=== PATIENT | female | born 1965 | race Hispanic/Latino ===

== ENCOUNTER 2018-08-31 07:50 | Day surgery (SDC) | payer OTHER, SELFPAY ==
[2018-08-31] VITALS (7 sets, daily range): BP systolic 90–115; BP diastolic 56–77; PULSE 75–92; RESP 12–18; TEMP 36.2–36.8; O2SAT 97–100; BMI 18.3
--- NOTE | 2018-08-31 | PATH_ITS ---
[facility] Accession Number: [id number] . 01 Material submitted: . PART A: ileo-cecal valve - IC VALVE PART B: colon - ASCENDING COLON POLYP PART C: colon - COLON POLYP AT 10-16CM . 02 Diagnosis: A. Ileocecal Valve, Polyp: Small serrated lesion, cannot exclude early sessile serrated adenoma. . B. Ascending Colon, Polyp: Sessile serrated adenoma. . C. Colon Mass, at 10-16 cm, Biopsies: Tubulovillous adenoma with high-grade dysplasia, focally suspicious for invasive adenocarcinoma; please see comment. MRV/09/02/2018 . 02 Comment: Part C) Sections are of colonic mucosa with cytologic dysplasia evidenced by nuclear hyperchromasia, pseudostratification and increased mitotic activity. Focally, the architecture reaches threshold for high-grade dysplasia. Adjacent to this focus, putative desmoplasia is present, highly concerning for invasive adenocarcinoma given the endoscopic impression of a mass. Assurance of complete removal of the lesion and close clinical followup are recommended. Given that there is no definitive adenocarcinoma in this specimen, immunohistochemical stains for DNA mismatch repair proteins are deferred to a resection specimen. However, if clinically indicated, these studies can be performed on this specimen upon request. . As part of routine research quality assurance specialist, Dr. Garsia has reviewed part C of this case and agrees with high-grade dysplasia, suspicous for invasive adenocarcinoma. The findings in this case were reported to Dr. Kang via his medical insurance claims processor Cindy by Dr. Keenan Morrow on 09/02/2018 at 2:10 p.m. . 02 Electronically signed: . Keenan Morrow MD, PhD, Pathologist NPI- [id number] . 01 Gross description: . Part A: IC VALVE: Received in formalin is 1 fragment(s) of henry, soft tissue measuring 0.3 x 0.3 x 0.3 cm which is entirely submitted and submitted entirely in 1 cassette(s) Part B: ASCENDING COLON POLYP: Received in formalin is 1 fragment(s) of henry, soft tissue measuring 0.8 x 0.5 x 0.4 cm which is entirely submitted and submitted entirely in 1 cassette(s) Part C: COLON POLYP AT 10-16CM: Received in formalin are multiple fragment(s) of henry, soft tissue measuring 0.1 x 0.1 x 0.1 cm to 0.3 x 0.3 x 0.2 cm which is entirely submitted and submitted entirely in 1 cassette(s) /DMC /DMC . 02 Pathologist provided ICD-10: D12.0, D12.2, D12.6 . 02 CPT . 405884, 130500, 524796 Performed at: 01 [facility] [address] [place] [address], [place], [place] [id number] MD Jack Crowell MD Phone: [phone] Performed at: 02 [facility] [address] [place], [place] [id number] MD Juanita Ricci MD Phone: [phone]
[2018-08-31] MEDS: SODIUM CHLORIDE 0.9% 1,000 ML 42 ML IV (08:27)
[2018-08-31] MEDS: MIDAZOLAM 5 MG/5 ML VIAL IV (09:25)
[2018-08-31] MEDS: fentaNYL 250 MCG/5 ML INJ IV (09:26)
--- NOTE | 2018-08-31 09:56 | PM.OP.ENDO ---
Operative Date/Time/Diagnoses Date of procedure: 08/31/18 Time of procedure: 09:56 Pre-op diagnosis: See indications and findings Procedure & Clinicians Study performed: Colonoscopy Indications: History of colon polyps with last colonoscopy 3 years ago. Patient also has been having rectal bleeding with most all bowel movements over the last year Surgeon: Elana Kang Procedure Notes Procedure in detail: After informed consent was obtained the patient was placed in left lateral decubitus position. The video colonoscope was introduced the rectum slowly advanced to the cecum. On slow withdrawal mucosa was carefully examined. Preparation was good. The scope was removed. The patient tolerated procedure well Blood loss none Complications none Medications Versed 8 mg fentanyl 150 micro g IV titration Total sedation time 26 minutes Findings 1. 5 mm polyp on the IC valve Jumbo biopsy removed completely 2. Indistinct flat polyp in the ascending colon probably 12 mm in size snared and removed completely with small amount of cautery 3. Colon mass at the apex of the rectum. distal measurement approximately 10 cm proximal 16 cm. Horseshoe shape and firm. Multiple biopsies taken. This was able to be palpated the tip of the finger on deep rectal exam. We will wait biopsies but almost certainly this lesion is malignant. She will need to be referred to Oncology for neoadjuvant chemotherapy and radiation therapy before surgery is considered. Will does be discussed the case with her primary care. She will need follow-up colonoscopy in 1 year or less
--- NOTE | 2018-08-31 10:37 | PM.HP.1 ---
History of Present Illness Chief complaint: [id number] COLONOSCOPY W/POSS BX Patient History Medical History (Updated 08/31/18 @ 08:09 by Reena Powers RN) Anemia (Acute) Dizziness (Acute) History of hysterectomy (Acute) Low vitamin D level (Acute) Migraines (Acute) Ovarian cyst (Acute) Palpitations (Acute) Thyroid tumor, benign (Acute) Social History household members: spouse Family & Social History Social History: household members spouse Meds Home Medications Medication Instructions Recorded Confirmed Type cholecalciferol (vitamin D3) 5,000 unit PO DAILY 08/31/18 08/31/18 History [Vitamin D3] ferrous sulfate [iron] 325 mg PO DAILY 08/31/18 08/31/18 History Allergies Allergy/AdvReac Type Severity Reaction Status Date / Time aspirin [ASPIRIN] Allergy Intermediate BLOOD Verified 08/31/18 08:04 BLISTERS NSAIDS (Non-Steroidal Allergy Intermediate BLOOD Verified 08/31/18 08:04 Anti-Inflamma BLISTERS [NSAIDS (NON-STEROIDAL ANTI-INFLAMMA] lactose [LACTOSE] Allergy Mild DIARRHEA, Verified 08/31/18 08:04 STOMACH CRAMPING. turkey Allergy Intermediate Causes Uncoded 08/18/17 12:10 migraines Exam Vital Signs (past 8 hours): - 08/31/18 08:16 08/31/18 09:51 08/31/18 09:56 Temperature 97.3 F L 97.2 F L Pulse Rate 86 77 75 Respiratory Rate 15 12 12 Blood Pressure 115/74 98/64 94/56 L Pulse Oximetry 97 98 97 08/31/18 10:00 08/31/18 10:05 08/31/18 10:15 Temperature 98.2 F Pulse Rate 79 78 92 H Respiratory Rate 16 18 16 Blood Pressure 90/57 L 101/70 112/76 Pulse Oximetry 99 98 100 Oxygen Delivery Method Room Air Narrative Exam Narrative: Oropharynx free of lesions Chest clear to auscultation percussion Cardiac exam reveals no S3 or murmur Assessment & Plan Assessment & Plan narrative: History of colon polyps with last colonoscopy 3 years ago. In addition she has been having rectal bleeding with most stools for the last year. Rule out recurrent polyps versus neoplasia. Rule out perianal source of bleeding. Colonoscopy has been explained. Risks, benefits, alternatives have been explained.
== END 2018-08-31 11:20 | disposition home or self-care (01) ==
PROVIDERS: PCP Nurse Practitioner Family; Visit Provider Internal Medicine Gastroenterology
PROC: 0DJD8ZZ Inspection of Lower Intestinal Tract, Via Natural or Artificial Opening Endoscopic (ICD-10-PCS; CPT 45378; principal; 2018-08-31 09:00)
DX: K62.5 Hemorrhage of anus and rectum (principal); Z86.010 Personal history of colon polyps; D12.0 Benign neoplasm of cecum; D12.2 Benign neoplasm of ascending colon; D12.6 Benign neoplasm of colon, unspecified
CPT/HCPCS: 45385; 45380; 88305; J2250; J3010

== ENCOUNTER → 2018-09-16 08:02 | Outpatient (CLI) | payer OTHER, SELFPAY ==
--- NOTE | 2018-09-16 | DI.MRI.S_ITS ---
PROCEDURE: MR PELIS WO/W CON INDICATIONS: Disease of anus and rectum, unspecified TECHNIQUE: Coronal HASTE, sagittal T2 FSE, axial T1 FSE, axial and coronal nonbreath-hold T2 FSE. Axial dynamic VIBE during administration of contrast. Post-contrast axial and coronal VIBE/2-D FLASH with fat saturation from the iliac crests to the symphysis. Optional diffusion weighted imaging and ADC may be performed. COMPARISON: None. FINDINGS: Image quality: Excellent. Rectum: Morphology: Semicircumferential lesion involving the mid to proximal segment of the rectum, about 270? of the rectal lumen. Clock face of tumor involvement: Approximately 10:00 to 7:00. Mucinous (high T2 signal): Heterogeneous mildly increased T2 signal diffusely with scattered areas of higher signal (likely areas of mucinous involvement). Craniocaudal length: Approximately 7 cm Distance to anal verge: Approximately 7 cm Distance to top of sphincter complex/anorectal junction: About 3.5 cm Relationship to anterior peritoneal reflection: straddles Tumor at or below puborectalis sling: No T staging: Depth of extramural invasion: 7 mm. Small spiculation of tumor extension left lateral from the 3:00 position (series 7 image 31). Extramural vascular invasion: Possible given the close association of perirectal neovascularity. T3 tumors only: distance to mesorectal fascia (circumferential resection margin): Posterior margin of the tumor/posterior serosal surface is within 4 mm of the sacrum. Pelvic organ involvement: Genitourinary: None. The uterus is surgically absent. Pelvic sidewall (obturator internus, piriformis, ischiococcygeus muscles): None Pelvic floor (pubococcygeus, iliococcygeus, puborectalis, levator plate): None Sacrum: None Vessels (internal and external iliac arteries and veins): None Nerves (lumbosacral nerve roots): None Regional lymph nodes (mesorectal, inguinal, iliac): Multiple abnormal perirectal lymph nodes are present with the average size of 7 mm in short axis. The most proximal perirectal lymph node with suspicious features measures 6 mm in short axis and is at the level of S3 to the left of midline. Other bowel and peritoneum: No pathologic free pelvic fluid. More proximal colon and small bowel loops are normal in caliber. Bones: Marrow is normal in overall signal. IMPRESSION: 1. 7 cm long T2 lesion with probable extramural extension of tumor or depth of about 7 mm. Questionable stage TIII C. 2. Multiple abnormal lymph nodes in the perirectal fat extending proximal to the level of S3. 3. Posterior margin of the rectal tumor is within 4 mm of the sacrum. Dictated by: Seema Reyes M.D. on 09/16/2018 at 11:20 Approved by: Seema Reyes M.D. on 09/16/2018 at 11:54
--- NOTE | 2018-09-16 09:28 | DI.CT.S_ITS ---
PROCEDURE: CT CHEST ABD PEL W CON INDICATIONS: Disease of anus and rectum, unspecified TECHNIQUE: After the administration of oral and intravenous contrast, 5 mm thick sections acquired from the lung apices to the symphysis. 5 mm coronal and sagittal reformats were performed, with additional 7 mm coronal MIP reformats through the lungs. For radiation dose reduction, the following was used: automated exposure control, adjustment of mA and/or kV according to patient size. COMPARISON: None. FINDINGS: Image quality: Excellent. CHEST: Lungs and pleura: No acute consolidation. Tiny 1 mm nonspecific right upper lobe nodule on image 22 series 3. No pleural effusions or pneumothorax. Central and peripheral airways appear patent and normal in caliber. Mediastinum: Heart size is normal. No pericardial effusion. No mediastinal or hilar adenopathy by size criteria. Thoracic aorta and central pulmonary arteries are normal in size. Esophagus is normal in caliber. No hiatal hernia. Chest wall: No axillary or supraclavicular adenopathy by size criteria. Thyroid gland demonstrates a large heterogeneous nodule involving the right lobe which could be better assessed with dedicated ultrasound.. ABDOMEN: Solid organs: Hepatic steatosis without definite focal lesion. Gallbladder unremarkable. Biliary system is non dilated. Pancreas enhances normally. Spleen is normal in size and enhancement. No adrenal nodules. Kidneys demonstrate normal size and enhancement, without hydronephrosis. Peritoneum and bowel: No free fluid or free air. No evidence of bowel obstruction. Moderate stool throughout colon. Colonic diverticulosis is seen without evidence of acute complication. Large rectal mass is seen image 102 series 2, with extensive wall thickening. This measures approximately 1.8 x 2.7 cm on image 98. There are sub-5 mm prominent lymph nodes in the mesorectal fat, suspicious for metastatic involvement. Nodes and vessels: No retroperitoneal or mesenteric adenopathy by size criteria. Aorta and inferior vena cava are normal in size. Miscellaneous: No ventral hernias. PELVIS: Genitourinary: Bladder wall thickness is normal. Miscellaneous: No inguinal hernias or adenopathy. Bones: No suspicious bony lesions. No vertebral body compression fractures. IMPRESSION: Large rectal mass. Scattered sub-5 mm prominent lymph nodes in the mesorectal fat are suspicious for metastatic disease. 1 mm nonspecific right upper lobe pulmonary nodule for which attention is recommended on subsequent studies. Elsewhere, no evidence of distant metastatic disease. Hepatic steatosis. Heterogeneous right thyroid lesion. This is the lesion presumably sampled on ultrasound guided FNA of 10/14/15. Please see report Dictated by: Juan Denton M.D. on 09/16/2018 at 10:30 Approved by: Juan Denton M.D. on 09/16/2018 at 10:40
== END ==
PROVIDERS: PCP Nurse Practitioner Family; Visit Provider Radiology Radiation Oncology
DX: D49.0 Neoplasm of unspecified behavior of digestive system (principal); R91.1 Solitary pulmonary nodule; R59.0 Localized enlarged lymph nodes; K76.0 Fatty (change of) liver, not elsewhere classified; E07.9 Disorder of thyroid, unspecified
CPT/HCPCS: 71260; 72197; 74177; A9579; Q9967

== ENCOUNTER 2018-09-23 11:00 | Day surgery (SDC) | payer OTHER, SELFPAY ==
--- NOTE | 2018-09-23 | PATH_ITS ---
[facility] Accession Number: [id number] . 01 Material submitted: . colon - SIGMOID COLON BIOPSY . 01 Clinical history: . INCLUDE GENETIC TESTING . 02 Diagnosis: Biopsy, Sigmoid Colon: Invasive adenocarcinoma, moderately differentiated. Negative for evidence of vascular invasion. Immunohistochemistry for mismatch repair gene panel ordered and will be reported by addendum. . . . COMMENT: Case reviewed by Dr. Juanita Ricci, who agrees with the diagnosis. . The results of this evaluation are telephoned to the office of Dr. Jerardo Velasco at 0905 on 09/26/2018. MRV/09/26/2018 . 02 Electronically signed: . Ramana Fontana MD, Pathologist NPI- [id number] . 01 Gross description: . SIGMOID COLON BIOPSY: Received in formalin are multiple fragment(s) of henry, soft tissue measuring 0.1 x 0.1 x 0.1 cm to 0.6 x 0.3 x 0.2 cm which is entirely submitted and submitted entirely in 1 cassette(s) /DMC /DMC . 02 Pathologist provided ICD-10: C18.9 . 02 CPT . 171027 Performed at: 01 [facility] [address], [place], [place] [id number] MD Jack Crowell MD Phone: [phone] Performed at: 02 [facility] [address] [place], [place] [id number] MD Juanita Ricci MD Phone: [phone]
[2018-09-23] MEDS: SODIUM CHLORIDE 0.9% 1,000 ML 200 ML IV (11:19)
[2018-09-23 11:36] VITALS: BP 112/74; PULSE 89; RESP 18; TEMP 36.9; O2SAT 99; BMI 18.2
--- NOTE | 2018-09-23 11:56 | PM.PREOP ---
Pre-operative Note Interval Note History & Physical reviewed/Exam performed by Physician: Yes Changes to H&P: No ASA Class (for procedural sedation): II
[2018-09-23] MEDS: fentaNYL 250 MCG/5 ML INJ IV (12:16)
[2018-09-23] MEDS: MIDAZOLAM 5 MG/5 ML VIAL IV (12:16)
[2018-09-23 12:25] VITALS: BP 92/42; PULSE 73; RESP 12; TEMP 36.6; O2SAT 99
--- NOTE | 2018-09-23 12:26 | PM.OP.ENDO ---
Operative Date/Time/Diagnoses Date of procedure: 09/23/18 Time of procedure: 12:26 Pre-op diagnosis: Rectal cancer Post-op diagnosis: same Procedure & Clinicians Study performed: Flexible sigmoidoscopy with cold biopsy Same procedure as scheduled: Yes Indications: Desire to confirm invasion and genetic testing on sample Surgeon: Jerardo Velasco Procedure Notes Procedure in detail: Patient was placed in left lateral decubitus position given IV sedation. This consisted of fentanyl Versed. Digital exam was remarkable for rather tight sphincter. Was quite uncomfortable but there was no induration. her anal verge was just narrowed. Topical anesthetic was applied. I reinserted my finger and At the tip of my finger I could feel a fixed mass. The scope was inserted advanced above the level of the mass is slowly withdrawn. The mass was approximately 8 cm in length. It was nearly circumferential. I took numerous biopsies of the mass and measured the distance using a flexible sig from her anal verge to the mass. This measurement was about 6 cm. I chose not to do a rigid exam because I think this would require rather small scope given her very narrow anus. Scope withdrawal time: Not applicable Sedation minutes: 11 Findings: other findings (Rectal cancer) Specimen(s): other (Biopsies) Complications: none Recommendations: Other recommendation (Follow-up with radiation/chemotherapy) Follow up: as needed (After radiation and chemo) Disposition: PACU
[2018-09-23 12:30] VITALS: BP 90/42; PULSE 71; RESP 12; O2SAT 98
[2018-09-23 12:33] VITALS: BP 90/45; PULSE 72; RESP 12; O2SAT 98
[2018-09-23 12:39] VITALS: BP 94/49; PULSE 73; RESP 14; O2SAT 98
[2018-09-23 13:13] VITALS: BP 105/67; PULSE 63; RESP 16; TEMP 35.9; O2SAT 100
== END 2018-09-23 13:33 | disposition home or self-care (01) ==
PROVIDERS: PCP Nurse Practitioner Family; Visit Provider Specialist
PROC: 0DJD8ZZ Inspection of Lower Intestinal Tract, Via Natural or Artificial Opening Endoscopic (ICD-10-PCS; CPT 45378; principal; 2018-09-23 12:45)
DX: C20 Malignant neoplasm of rectum (principal); D50.9 Iron deficiency anemia, unspecified
CPT/HCPCS: 45331; 88305; 88341; 88342; 99152; J2250; J3010

== ENCOUNTER 2018-12-20 06:43 | Day surgery (SDC) | payer OTHER, SELFPAY ==
[2018-12-20 07:25] VITALS: BP 111/68; PULSE 75; RESP 14; TEMP 36.7; O2SAT 100; BMI 18.7
[2018-12-20] MEDS: SODIUM CHLORIDE 0.9% 1,000 ML 200 ML IV (07:30)
--- NOTE | 2018-12-20 08:05 | PM.PREOP ---
Pre-operative Note Interval Note History & Physical reviewed/Exam performed by Physician: Yes Changes to H&P: No H&P completed within 30 days and has changed as indicated here:: see note 11/25 ASA Class (for procedural sedation): II
[2018-12-20] MEDS: fentaNYL 250 MCG/5 ML INJ IV (08:22)
--- NOTE | 2018-12-20 08:28 | PM.OP.ENDO ---
Operative Date/Time/Diagnoses Date of procedure: 12/20/18 Time of procedure: 08:28 Pre-op diagnosis: Rectal cancer Post-op diagnosis: same Procedure & Clinicians Study performed: Flexible sigmoidoscopy with injection of Dorothea ink Same procedure as scheduled: Yes Indications: Re-evaluate tumor post treatment Surgeon: Jerardo Velasco Procedure Notes SCOAP/Timeout: Performed Procedure in detail: Patient is placed in left lateral decubitus position. She was sedated using Versed and fentanyl. Digital exam was remarkable for narrowing at the area near the anal verge. Insertion of a finger appeared to be quite uncomfortable so topical anesthetic was applied in the form of lidocaine gel. There was no redness. There were some external hemorrhoidal tags. The scope was inserted. I readily found the tumor. It appeared to have decreased in size remarkably, but had not disappeared. There was no tattooing. I injected Dorothea ink 1 cc into the wall of the colon in 3 areas at or just distal to the tumor. The scope was removed the patient tolerated the procedure well. The scope tumor was carefully measured and appeared to be at approximately 6.5 cm from the anal verge. Scope withdrawal time: Not applicable Sedation minutes: 15 Findings: other findings (Residual rectal cancer post chemotherapy and radiation.) Plan for aftercare: Will refer for possible APR versus very low anterior resection. If an APR as necessary there will be a need for the availability of a plastic surgeon to swing a flap. Follow up: as needed (I will contact her regarding future care) Disposition: PACU
[2018-12-20] MEDS: MIDAZOLAM 5 MG/5 ML VIAL IV (08:29)
[2018-12-20 08:33] VITALS: BP 98/55; PULSE 77; RESP 13; TEMP 36.5; O2SAT 97
[2018-12-20 08:37] VITALS: BP 102/55; PULSE 52; RESP 13; O2SAT 96
[2018-12-20 08:42] VITALS: BP 95/51; PULSE 65; RESP 17; O2SAT 97
--- NOTE | 2018-12-20 09:08 | SUR.PHASEI ---
assumed care from [facility], to opd stable pacu stay.
[2018-12-20 09:10] VITALS: BP 103/55; PULSE 66; RESP 16; TEMP 36.6; O2SAT 97
--- NOTE | 2018-12-20 09:21 | SUR.PHASEII ---
brought in supportive, at bedside. VSS. call light in reach.
--- NOTE | 2018-12-20 09:25 | SUR.OPER ---
TOLERATED WELL, VITAL SIGNS STABLE
[2018-12-20 09:30] VITALS: BP 97/64; PULSE 64; RESP 16; TEMP 36.3; O2SAT 100
== END 2018-12-20 09:40 | disposition home or self-care (01) ==
PROVIDERS: PCP Nurse Practitioner Family; Visit Provider Specialist
PROC: 0DJD8ZZ Inspection of Lower Intestinal Tract, Via Natural or Artificial Opening Endoscopic (ICD-10-PCS; CPT 45378; principal; 2018-12-20 07:45)
DX: C20 Malignant neoplasm of rectum (principal); K64.4 Residual hemorrhoidal skin tags; D64.9 Anemia, unspecified
CPT/HCPCS: 45335; 99152; J2250; J3010

== ENCOUNTER → 2018-12-21 09:54 | Outpatient (CLI) | payer OTHER, SELFPAY ==
--- NOTE | 2018-12-21 11:55 | DI.CT.S_ITS ---
PROCEDURE: CT CHEST ABD PEL W CON INDICATIONS: Rectal cancer her post new adjuvant tx.f/u lung lesions TECHNIQUE: After the administration of oral and intravenous contrast, 5 mm thick sections acquired from the lung apices to the symphysis. 5 mm coronal and sagittal reformats were performed, with additional 7 mm coronal MIP reformats through the lungs. For radiation dose reduction, the following was used: automated exposure control, adjustment of mA and/or kV according to patient size. COMPARISON: [facility], MR, MR PELVIS WO/W CON, 09/16/2018, 8:23. [facility], CT, CT CHEST ABD PEL W CON, 09/16/2018, 9:46. FINDINGS: Image quality: Excellent. CHEST: Lungs and pleura: No acute airspace opacities. A 1 mm right upper lobe lung nodule is again seen laterally, stable over time, and no new nodule has developed. No pleural effusions or pneumothorax. Central and peripheral airways appear patent and normal in caliber. Mediastinum: Heart size is normal. No pericardial effusion. No mediastinal or hilar adenopathy by size criteria. Thoracic aorta and central pulmonary arteries are normal in size. Esophagus is normal in caliber. No hiatal hernia. Chest wall: No axillary or supraclavicular adenopathy by size criteria. Thyroid gland contains a large heterogeneous 2.8 cm mass on the right, previously present, which should be further assessed by dedicated thyroid ultrasound and followup biopsy likely will become necessary.. ABDOMEN: Solid organs: Liver is normal in size and enhancement. Gallbladder appears normal. Biliary system is non dilated. Pancreas enhances normally. Spleen is normal in size and enhancement. No adrenal nodules. Kidneys demonstrate normal size and enhancement, without hydronephrosis. Peritoneum and bowel: Bowel loops demonstrate normal wall thickness and caliber. No free fluid or air. Nodes and vessels: No retroperitoneal or mesenteric adenopathy by size criteria. Aorta and inferior vena cava are normal in size. Miscellaneous: No ventral hernias. PELVIS: Genitourinary: Bladder wall thickness is normal. Miscellaneous: No inguinal hernias or adenopathy. The low rectal mass lesion that extended from the low rectum into the anal verge area on prior CT scanning 09/16/18 appears to have appreciably diminished in size, reportedly related to radiation therapy and chemotherapy treatment, without surgical intervention at this time. The boundaries of the mass would be better visualized by MR scanning with contrast but the reduction in size is estimated at approximately 50% of the original mass. AP and transverse dimensions are 3.5 x 3.9 cm currently. Bones: No suspicious bony lesions. No vertebral body compression fractures. IMPRESSION: 1. A single 1 mm lateral right upper lobe pulmonary nodule was previously identified and is not changed. No new nodule has developed. 2. No hepatic or other visceral metastatic disease appears to have developed. No adenopathy is found. 3. Rectal mass lesion, significantly decreased in size from the prior examination 5 slice 02/25 with approximately 50% reduction in overall mass dimensions. MR scanning allows a more accurate delineation of the boundaries of the mass, however, and followup MR scanning may be warranted. Dictated by: Korey Willingham M.D. on 12/21/2018 at 16:52 Approved by: Korey Willingham M.D. on 12/21/2018 at 17:01
== END ==
PROVIDERS: PCP Nurse Practitioner Family; Visit Provider Specialist
DX: C20 Malignant neoplasm of rectum (principal); R91.1 Solitary pulmonary nodule
CPT/HCPCS: 71260; 74177; Q9967

== ENCOUNTER → 2019-04-05 10:53 | Outpatient (CLI) | payer OTHER, SELFPAY ==
[2019-04-05 12:04] LABS: Add Manual Diff / Slide Review NO; Basophils Absolute Auto 0 /uL (0-100); Basophils Percent Auto 0.6 % (0-2); Eosinophils Absolute Auto 200 /uL (0-450); Eosinophils Percent Auto 3.6 % (2-4); Hematocrit 38.1 % (36-46); Hemoglobin 12.9 g/dL (12.0-16.0); Lymphocytes Absolute Auto 800 /uL (1100-4500); Lymphocytes Percent Auto 18.9 % (25-40); Mean Corpuscular HGB Conc 33.9 % (30-36); Mean Corpuscular Hemoglobin 29.2 PG (26-34); Mean Corpuscular Volume 86.3 fL (80-100); Monocytes Absolute Auto 500 /uL (0-900); Monocytes Percent Auto 10.8 % (3-14); Neutrophils Absolute Auto 2900 /uL (1500-7000); Neutrophils Percent Auto 66.1 % (50-75); Platelet Count 297 X10^3/uL (150-400); Red Blood Cell Count 4.42 X10^6/uL (4.0-5.2); Red Cell Distribution Width 13.1 % (11.6-14.8); White Blood Cell Count 4.5 X10^3/uL (4.5-11.0)
[2019-04-05 12:18] LABS: Alanine Aminotransferase 8 IU/L (<35); Albumin 4.2 g/dL (3.5-5.0); Albumin Globulin Ratio 1.6 (1.0-2.8); Alkaline Phosphatase 78 U/L (38-126); Aspartate Aminotransferase 25 IU/L (14-36); Bilirubin Total 0.4 mg/dL (0.2-1.3); Blood Urea Nitrogen 9 mg/dL (7-17); Calcium 9.8 mg/dL (8.4-10.2); Carbon Dioxide 29 mmol/L (22-32); Chloride 101 mmol/L (98-107); Estimated Glomerular Filt Rate > 60.0 mL/min (>60); Globulin 2.7 g/dL (1.7-4.1); Glucose 91 mg/dL (70-100); HEMOLYSIS < 15 (0-50); Potassium 4.1 mmol/L (3.4-5.1); Sodium 138 mmol/L (137-145); Total Protein 6.9 g/dL (6.3-8.2)
[2019-04-05 12:48] LABS: Carcinoembryonic Antigen 0.6 ng/mL (0.1-3.0)
== END ==
PROVIDERS: PCP Nurse Practitioner Family; Visit Provider Internal Medicine Hematology & Oncology
DX: C20 Malignant neoplasm of rectum (principal)
CPT/HCPCS: 36415; 80053; 82378; 85025

== ENCOUNTER → 2019-05-16 10:18 | Outpatient (CLI) | payer OTHER, SELFPAY ==
[2019-05-16 10:38] LABS: Add Manual Diff / Slide Review NO; Basophils Absolute Auto 0 /uL (0-100); Basophils Percent Auto 0.5 % (0-2); Eosinophils Absolute Auto 300 /uL (0-450); Hematocrit 38.7 % (36-46); Hemoglobin 13.1 g/dL (12.0-16.0); Lymphocytes Absolute Auto 1000 /uL (1100-4500); Lymphocytes Percent Auto 20.4 % (25-40); Mean Corpuscular HGB Conc 33.9 % (30-36); Mean Corpuscular Hemoglobin 28.7 PG (26-34); Mean Corpuscular Volume 84.7 fL (80-100); Monocytes Absolute Auto 600 /uL (0-900); Monocytes Percent Auto 11.1 % (3-14); Neutrophils Absolute Auto 3200 /uL (1500-7000); Platelet Count 215 X10^3/uL (150-400); Red Blood Cell Count 4.57 X10^6/uL (4.0-5.2); Red Cell Distribution Width 13.1 % (11.6-14.8); White Blood Cell Count 5.1 X10^3/uL (4.5-11.0)
[2019-05-16 11:09] LABS: Alanine Aminotransferase 6 IU/L (<35); Albumin 4.4 g/dL (3.5-5.0); Albumin Globulin Ratio 1.9 (1.0-2.8); Alkaline Phosphatase 81 U/L (38-126); Aspartate Aminotransferase 20 IU/L (14-36); BUN Creatinine Ratio 18.3 (6-22); Bilirubin Total 0.4 mg/dL (0.2-1.3); Blood Urea Nitrogen 11 mg/dL (7-17); Calcium 9.5 mg/dL (8.4-10.2); Carbon Dioxide 31 mmol/L (22-32); Chloride 99 mmol/L (98-107); Estimated Glomerular Filt Rate > 60.0 mL/min (>60); Globulin 2.3 g/dL (1.7-4.1); Glucose 96 mg/dL (70-100); HEMOLYSIS < 15 (0-50); Potassium 3.9 mmol/L (3.4-5.1); Sodium 138 mmol/L (137-145); Total Protein 6.7 g/dL (6.3-8.2)
== END ==
PROVIDERS: PCP Nurse Practitioner Family; Visit Provider Internal Medicine Hematology & Oncology
DX: C20 Malignant neoplasm of rectum (principal)
CPT/HCPCS: 36415; 80053; 82378; 85025

== ENCOUNTER 2019-06-04 18:31 | Emergency (ER) | payer OTHER, SELFPAY ==
[2019-06-04 18:45] VITALS: BP 96/74; PULSE 107; RESP 14; TEMP 36.6; O2SAT 98
--- NOTE | 2019-06-04 18:51 | ED_ITS ---
HPI - Nausea/Vomiting/Diarrhea General Chief complaint: Nausea/Vomiting/Diarrhea Stated complaint: chemo patient,diarrhea x48hrs thinks dehydrated Time Seen by Provider: 06/04/19 18:48 Source: patient Mode of arrival: Ambulatory Limitations: no limitations History of Present Illness HPI Narrative: 53-year-old female with a history of rectal cancer. Currently undergoing chemotherapy. Last dose was 5 days ago. She has also taken oral chemotherapy daily. She did not take this evening. Here for evaluation of na usea vomiting and diarrhea. She states she feels like she is dehydrated. Generalized abdominal pain secondary to the vomiting. No blood in her stool. Related Data Home Medications Medication Instructions Recorded Confirmed cholecalciferol (vitamin D3) 5,000 unit PO DAILY 08/31/18 01/03/19 [Vitamin D3] ferrous sulfate [iron] 325 mg PO DAILY 08/31/18 01/03/19 fluticasone propionate 50 1 spray NASAL DAILY 09/21/18 01/03/19 mcg/actuation nasal spray,suspension sumatriptan succinate 100 mg tablet 100 mg PO Q2-4H PRN 09/21/18 01/03/19 pantoprazole [Protonix] 40 mg PO DAILY 12/20/18 01/03/19 Allergies Allergy/AdvReac Type Severity Reaction Status Date / Time aspirin [ASPIRIN] Allergy Intermediate BLOOD Verified 06/04/19 18:50 BLISTERS NSAIDS (Non-Steroidal Allergy Intermediate BLOOD Verified 06/04/19 18:50 Anti-Inflamma BLISTERS [NSAIDS (NON-STEROIDAL ANTI-INFLAMMA] iodine Allergy Mild throat Verified 06/04/19 18:50 swelling lactose [LACTOSE] Allergy Mild DIARRHEA, Verified 06/04/19 18:50 STOMACH CRAMPING. turkey Allergy Intermediate Causes Uncoded 01/03/19 15:46 migraines Review of Systems Constitutional Constitutional: Denies fever(s) Cardiovascular Cardiovascular: Denies chest pain and Denies dyspnea Respiratory Respiratory: Denies dyspnea Gastrointestinal Gastrointestinal: Reports abdominal pain, Reports diarrhea, Reports nausea and Reports vomiting Genitourinary Genitourinary: Denies dysuria and Denies vaginal discharge Musculoskeletal Musculoskeletal: Denies myalgias and Denies arthralgias Integumentary/Breasts Skin/Breast: Denies rash Neurologic Neurologic: Denies behavioral changes Psychiatric Psychiatric: Denies behavioral changes Hematologic/Lymphatic Hematologic/Lymphatic: Denies easy bleeding and Denies easy bruising Patient History Medical History Anemia (Acute) Dizziness (Acute) Low vitamin D level (Acute) Migraines (Acute) Ovarian cyst (Acute) Palpitations (Acute) Rectal cancer (Acute) Thyroid tumor, benign (Acute) Surgical History History of hysterectomy (Acute) Social History household members: spouse Smoking Status: Former smoker Smoking Status: Former smoker tobacco type: cigarettes alcohol intake frequency: 0-2 drinks per day Substance Use Type: does not use Exam Initial Vital Signs Initial Vital Signs: Vital Signs Temperature 98 F 06/04/19 18:45 Pulse Rate 107 H 06/04/19 18:45 Respiratory Rate 14 06/04/19 18:45 Blood Pressure 96/74 06/04/19 18:45 Pulse Oximetry 98 06/04/19 18:45 Const General: healthy appearing, comfortable and well developed Limitations: mental status not altered HENMT Head: normal to inspection and normocephalic Resp Effort & Inspection: normal respiratory effort Auscultation: clear to auscultation bilaterally Cardio Rate: tachycardic Rhythm: regular rhythm Pulses: radial pulses present GI Inspection: non-distended Palpation: soft, No firm, No guarding and tender (Diffuse) Skin Lesions: no lesions Rashes: no rashes Neuro General: alert, awake and oriented x3 Cognition: normal cognition Speech: speech normal Extrem General: normal to inspection, capillary refill normal and No edema Psych Appearance: grossly normal and well kempt Scores GCS [place] coma scale eye opening: Spontaneous [place] coma scale verbal response: Orientated [place] coma scale motor response: Obey commands Rob coma scale total score: 15 Course Orders Ordered: ED Orders 06/04/19 19:25 Basic Metabolic Panel Stat Complete Blood Count AUTO DIFF Stat 06/04/19 19:37 Ictotest Urine Stat Urine Microscopic Stat 06/04/19 20:51 GI Panel (Film Array) Stat Discontinued Medications Sodium Chloride (Normal Saline 0.9%) 1,000 mls @ 1,000 mls/hr IV BOLUS ONE Stop: 06/04/19 19:47 Last Infusion: 06/04/19 20:45 Dose: 0 mls/hr Documented by: Admin: 06/04/19 19:18 Dose: 1,000 mls/hr Documented by: SARA Ondansetron HCl (Zofran) 4 mg IV NOW ONE Stop: 06/04/19 19:03 Last Admin: 06/04/19 19:18 Dose: 4 mg Documented by: SARA Vital Signs Vital signs: Vital Signs - 8 hr 06/04/19 18:45 06/04/19 19:26 06/04/19 21:20 Temperature 98 F Pulse Rate 107 H 100 H 88 Respiratory Rate 14 12 18 Blood Pressure 96/74 106/73 Blood Pressure [Right Arm] 116/78 Pulse Oximetry 98 99 98 MDM - Nausea/Vomiting/Diarrhea Lab Data Attestation: I reviewed the patient's lab results. Result diagrams: 06/04/19 19:25 06/04/19 19:25 Labs: Lab Results 06/04/19 06/04/19 06/04/19 Range/Units 19:25 19:25 19:37 WBC 5.2 (4.5-11.0) X10^3/uL RBC 4.69 (4.0-5.2) X10^6/uL Hgb 13.9 (12.0-16.0) g/dL Hct 40.5 (36-46) % MCV 86.3 (80-100) fL MCH 29.6 (26-34) PG MCHC 34.3 (30-36) % RDW 14.0 (11.6-14.8) % Plt Count 147 L (150-400) X10^3/uL Neut % (Auto) 64.4 (50-75) % Lymph % (Auto) 15.8 L (25-40) % [place] % (Auto) 15.4 H (3-14) % Eos % (Auto) 3.5 (2-4) % Baso % (Auto) 0.9 (0-2) % Neut # (Auto) 3400 (5711-8947) /uL Lymph # (Auto) 800 L (2768-3727) /uL [place] # (Auto) 800 (0-900) /uL Eos # (Auto) 200 (0-450) /uL Baso # (Auto) 0 (0-100) /uL Sodium 134 L (137-145) mmol/L Potassium 3.2 L (3.4-5.1) mmol/L Chloride 99 (98-107) mmol/L Carbon Dioxide 28 (22-32) mmol/L BUN 13 (7-17) mg/dL Creatinine 0.60 (0.52-1.04) mg/dL Estimated GFR > 60.0 (>60) mL/min BUN/Creatinine Ratio 21.7 (6-22) Glucose 98 (70-100) mg/dL Calcium 8.9 (8.4-10.2) mg/dL Ur Bilirubin Confirm Negative (Negative) Urine RBC 0-1/hpf (0-5/HPF) Urine WBC 1-5/hpf (0-5/HPF) Ur Squamous Epith Cells 1-5 /hpf (0-5/HPF) Ur Transition Epith Cell 0-1/hpf (0-5/HPF) Urine Bacteria Occasional (0-1) (None) Hyaline Casts 1-5/lpf (None) Granular Casts 0-1/lpf (None) Urine Mucus 2+ H (Negative) Ur Culture Indicated? Cult not indicated Stl C. cayetanensis PCR (Not Detect) Stool Rotavirus (PCR) (Not Detect) Stool Adenovirus (PCR) (Not Detect) Stool Astrovirus (PCR) (Not Detect) Stool Cryptosporidium PCR (Not Detect) Stl E.coli Shiga Tox PCR (Not Detect) St Sh/Enteroin Ecoli PCR (Not Detect) Stool E coli O157 PCR (Not Detect) Stl Enterotoxigenic E PCR (Not Detect) Stool EPEC (PCR) (Not Detect) Stl E. histolytica PCR (Not Detect) Stool Giardia Lamblia PCR (Not Detect) Stool Sapovirus (PCR) (Not Detect) Stl P. shigelloides PCR (Not Detect) St Y.enterocolitica PCR (Not Detect) Stool Vibrio (PCR) (Not Detect) Stl Vibrio cholerae PCR (Not Detect) Stl Enteroaggr Ecoli PCR (Not Detect) Stl Norovirus GI/GII PCR (Not Detect) Campylobacter (PCR) (Not Detect) C. difficile Tox (PCR) (Not Detect) Salmonella (PCR) (Not Detect) 06/04/19 Range/Units 20:51 WBC (4.5-11.0) X10^3/uL RBC (4.0-5.2) X10^6/uL Hgb (12.0-16.0) g/dL Hct (36-46) % MCV (80-100) fL MCH (26-34) PG MCHC (30-36) % RDW (11.6-14.8) % Plt Count (150-400) X10^3/uL Neut % (Auto) (50-75) % Lymph % (Auto) (25-40) % [place] % (Auto) (3-14) % Eos % (Auto) (2-4) % Baso % (Auto) (0-2) % Neut # (Auto) (8213-1569) /uL Lymph # (Auto) (8516-6262) /uL [place] # (Auto) (0-900) /uL Eos # (Auto) (0-450) /uL Baso # (Auto) (0-100) /uL Sodium (137-145) mmol/L Potassium (3.4-5.1) mmol/L Chloride (98-107) mmol/L Carbon Dioxide (22-32) mmol/L BUN (7-17) mg/dL Creatinine (0.52-1.04) mg/dL Estimated GFR (>60) mL/min BUN/Creatinine Ratio (6-22) Glucose (70-100) mg/dL Calcium (8.4-10.2) mg/dL Ur Bilirubin Confirm (Negative) Urine RBC (0-5/HPF) Urine WBC (0-5/HPF) Ur Squamous Epith Cells (0-5/HPF) Ur Transition Epith Cell (0-5/HPF) Urine Bacteria (None) Hyaline Casts (None) Granular Casts (None) Urine Mucus (Negative) Ur Culture Indicated? Stl C. cayetanensis PCR Not detected (Not Detect) Stool Rotavirus (PCR) Not detected (Not Detect) Stool Adenovirus (PCR) Not detected (Not Detect) Stool Astrovirus (PCR) Not detected (Not Detect) Stool Cryptosporidium PCR Not detected (Not Detect) Stl E.coli Shiga Tox PCR Not detected (Not Detect) St Sh/Enteroin Ecoli PCR Not detected (Not Detect) Stool E coli O157 PCR Not detected (Not Detect) Stl Enterotoxigenic E PCR Not detected (Not Detect) Stool EPEC (PCR) Not detected (Not Detect) Stl E. histolytica PCR Not detected (Not Detect) Stool Giardia Lamblia PCR Not detected (Not Detect) Stool Sapovirus (PCR) Not detected (Not Detect) Stl P. shigelloides PCR Not detected (Not Detect) St Y.enterocolitica PCR Not detected (Not Detect) Stool Vibrio (PCR) Not detected (Not Detect) Stl Vibrio cholerae PCR Not detected (Not Detect) Stl Enteroaggr Ecoli PCR Not detected (Not Detect) Stl Norovirus GI/GII PCR Not detected (Not Detect) Campylobacter (PCR) Not detected (Not Detect) C. difficile Tox (PCR) Not detected (Not Detect) Salmonella (PCR) Not detected (Not Detect) Urine Dip Bedside Urine Glucose Negative Bedside Urine Bilirubin ++ 2 Bedside Urine Ketone + 15 Urine Specific [place] 1.025 Bedside Urine Occult Blood - Negative Bedside Urine pH 6.0 Bedside Urine Protein +/- 15 Bedside Urine Urobilinogen - Negative Bedside Urine Nitrite - Negative Bedside Urine Leukocytes - Negative Esterase MDM Narrative Medical decision making narrative: Patient is afebrile. Not neutropenic. Received fluids and Zofran which she states helped her symptoms. She felt much better afterwards. No urinary tract infection. GI panel negative. No indication for antibiotics. Was able tolerate oral intake prior to discharge. We did discuss return precautions and follow-up instructions. She expressed understanding and agreement with plan. Discharge Plan Departure Patient Disposition: Home Clinical Impression: Dehydration, Vomiting and diarrhea Discharge Date/Time: 06/04/19 21:20 Instructions: DI for Dehydration -- Adult Activity Restrictions/Additional Instructions: Continue all of your medications as directed. Be sure to increase your fluid intake. Return to the emergency department for any new or worsening symptoms. Prescriptions: No Action sumatriptan succinate [Imitrex] 100 mg tablet 100 mg PO Q2-4H PRN (Reason: migraines) RF: 0 fluticasone propionate 50 mcg/actuation spray,suspension 1 spray NASAL DAILY RF: 0 ferrous sulfate [iron] 325 mg (65 mg iron) Tablet 325 mg PO DAILY RF: 0 cholecalciferol (vitamin D3) [Vitamin D3] 5,000 unit Tablet 5,000 unit PO DAILY RF: 0 pantoprazole [Protonix] 40 mg Tablet,Delayed Release (Dr/Ec) 40 mg PO DAILY RF: 0 Referrals: Luis Antonio Brink [Primary Care Provider] -
[2019-06-04] MEDS: ONDANSETRON 4 MG/2 ML INJ IV (19:18)
[2019-06-04] MEDS: SODIUM CHLORIDE 0.9% 1,000 ML 1000 ML IV (19:18)
[2019-06-04 19:26] VITALS: BP 116/78; PULSE 100; RESP 12; O2SAT 99
[2019-06-04 19:32] LABS: Add Manual Diff / Slide Review NO; Basophils Absolute Auto 0 /uL (0-100); Basophils Percent Auto 0.9 % (0-2); Eosinophils Absolute Auto 200 /uL (0-450); Eosinophils Percent Auto 3.5 % (2-4); Hematocrit 40.5 % (36-46); Hemoglobin 13.9 g/dL (12.0-16.0); Lymphocytes Absolute Auto 800 /uL (1100-4500); Lymphocytes Percent Auto 15.8 % (25-40); Mean Corpuscular HGB Conc 34.3 % (30-36); Mean Corpuscular Hemoglobin 29.6 PG (26-34); Mean Corpuscular Volume 86.3 fL (80-100); Monocytes Absolute Auto 800 /uL (0-900); Monocytes Percent Auto 15.4 % (3-14); Neutrophils Absolute Auto 3400 /uL (1500-7000); Neutrophils Percent Auto 64.4 % (50-75); Platelet Count 147 X10^3/uL (150-400); Red Blood Cell Count 4.69 X10^6/uL (4.0-5.2); White Blood Cell Count 5.2 X10^3/uL (4.5-11.0)
[2019-06-04 19:43] LABS: BUN Creatinine Ratio 21.7 (6-22); Blood Urea Nitrogen 13 mg/dL (7-17); Calcium 8.9 mg/dL (8.4-10.2); Carbon Dioxide 28 mmol/L (22-32); Chloride 99 mmol/L (98-107); Estimated Glomerular Filt Rate > 60.0 mL/min (>60); Glucose 98 mg/dL (70-100); HEMOLYSIS < 15 (0-50); Potassium 3.2 mmol/L (3.4-5.1); Sodium 134 mmol/L (137-145)
[2019-06-04 19:57] LABS: Ictotest Urine Negative (Negative)
[2019-06-04 19:58] LABS: Bacteria Urine Occasional (0-1); Culture Indicated Urine Cult Not Indicated; Granular Casts Urine 0-1/LPF; Hyaline Casts Urine 1-5/LPF; Mucus Urine 2+ (Negative); RBC Urine 0-1/HPF (0-5/HPF); Squamous Epithelial Cell Urine 1-5 /HPF (0-5/HPF); Transitional Epi Cells Urine 0-1/HPF (0-5/HPF); WBC Urine 1-5/HPF (0-5/HPF)
[2019-06-04 21:20] VITALS: BP 106/73; PULSE 88; RESP 18; O2SAT 98
[2019-06-04 22:29] LABS: Adenovirus F 40/41 Not Detected (Not Detect); Astrovirus Not Detected (Not Detect); Campylobacter Not Detected (Not Detect); Clostridium difficile toxin AB Not Detected (Not Detect); Cryptosporidium Not Detected (Not Detect); Cyclospora cayetanensis Not Detected (Not Detect); Entamoeba histolytica Not Detected (Not Detect); Enteroaggregative E.coli Not Detected (Not Detect); Enteropathogenic E.coli Not Detected (Not Detect); Enterotoxigenic E.coli It/st Not Detected (Not Detect); Giardia lamblia Not Detected (Not Detect); Norovirus GI/GII Not Detected (Not Detect); Plesiomonsa shigelloides Not Detected (Not Detect); Rotavirus A Not Detected (Not Detect); Salmonella Not Detected (Not Detect); Sapovirus Not Detected (Not Detect); Shiga-like toxin-prod E.coli Not Detected (Not Detect); Shigella/Enteroinvasive E.coli Not Detected (Not Detect); Vibrio Not Detected (Not Detect); Vibrio cholerae Not Detected (Not Detect); Yersinia enterocolitica Not Detected (Not Detect)
== END 2019-06-04 21:20 | disposition home or self-care (01) ==
PROVIDERS: Emergency Provider Emergency Medicine; PCP Nurse Practitioner Family
DX: E86.0 Dehydration (principal); R11.10 Vomiting, unspecified; R19.7 Diarrhea, unspecified; C20 Malignant neoplasm of rectum
CPT/HCPCS: 36415; 80048; 81003; 81015; 85025; 87507; 96361; 96374; 99284; J1642; J2405

== ENCOUNTER → 2019-06-27 10:12 | Outpatient (CLI) | payer OTHER, SELFPAY ==
[2019-06-27 10:48] LABS: Add Manual Diff / Slide Review NO; Basophils Absolute Auto 0 /uL (0-100); Basophils Percent Auto 0.4 % (0-2); Eosinophils Absolute Auto 200 /uL (0-450); Eosinophils Percent Auto 2.7 % (2-4); Hematocrit 39.8 % (36-46); Hemoglobin 13.6 g/dL (12.0-16.0); Lymphocytes Absolute Auto 800 /uL (1100-4500); Lymphocytes Percent Auto 14.3 % (25-40); Mean Corpuscular HGB Conc 34.3 % (30-36); Mean Corpuscular Hemoglobin 29.7 PG (26-34); Mean Corpuscular Volume 86.8 fL (80-100); Monocytes Absolute Auto 600 /uL (0-900); Monocytes Percent Auto 10.2 % (3-14); Neutrophils Absolute Auto 4000 /uL (1500-7000); Neutrophils Percent Auto 72.4 % (50-75); Platelet Count 118 X10^3/uL (150-400); Red Blood Cell Count 4.59 X10^6/uL (4.0-5.2); Red Cell Distribution Width 16.7 % (11.6-14.8); White Blood Cell Count 5.5 X10^3/uL (4.5-11.0)
[2019-06-27 11:24] LABS: Alanine Aminotransferase 15 IU/L (<35); Albumin 4.2 g/dL (3.5-5.0); Albumin Globulin Ratio 1.4 (1.0-2.8); Alkaline Phosphatase 82 U/L (38-126); Aspartate Aminotransferase 41 IU/L (14-36); BUN Creatinine Ratio 12.9 (6-22); Bilirubin Total 0.5 mg/dL (0.2-1.3); Blood Urea Nitrogen 9 mg/dL (7-17); Calcium 9.6 mg/dL (8.4-10.2); Carbon Dioxide 29 mmol/L (22-32); Chloride 99 mmol/L (98-107); Estimated Glomerular Filt Rate > 60.0 mL/min (>60); Glucose 105 mg/dL (70-100); HEMOLYSIS < 15 (0-50); Sodium 137 mmol/L (137-145); Total Protein 7.2 g/dL (6.3-8.2)
== END ==
PROVIDERS: PCP Nurse Practitioner Family; Referring Provider Internal Medicine Hematology & Oncology; Visit Provider Internal Medicine Hematology & Oncology
DX: C20 Malignant neoplasm of rectum (principal)
CPT/HCPCS: 36415; 80053; 82378; 85025

== ENCOUNTER → 2019-07-18 10:07 | Outpatient (CLI) | payer OTHER, SELFPAY ==
[2019-07-18 10:35] LABS: Add Manual Diff / Slide Review NO; Basophils Absolute Auto 0 /uL (0-100); Basophils Percent Auto 0.5 % (0-2); Eosinophils Absolute Auto 100 /uL (0-450); Eosinophils Percent Auto 1.7 % (2-4); Hematocrit 39.2 % (36-46); Hemoglobin 13.6 g/dL (12.0-16.0); Lymphocytes Absolute Auto 900 /uL (1100-4500); Lymphocytes Percent Auto 24.3 % (25-40); Mean Corpuscular HGB Conc 34.6 % (30-36); Mean Corpuscular Hemoglobin 30.9 PG (26-34); Mean Corpuscular Volume 89.4 fL (80-100); Monocytes Absolute Auto 400 /uL (0-900); Monocytes Percent Auto 12.5 % (3-14); Neutrophils Absolute Auto 2200 /uL (1500-7000); Platelet Count 151 X10^3/uL (150-400); Red Blood Cell Count 4.39 X10^6/uL (4.0-5.2); Red Cell Distribution Width 19.3 % (11.6-14.8); White Blood Cell Count 3.5 X10^3/uL (4.5-11.0)
[2019-07-18 10:48] LABS: Alanine Aminotransferase 10 IU/L (<35); Albumin 4.2 g/dL (3.5-5.0); Albumin Globulin Ratio 1.4 (1.0-2.8); Alkaline Phosphatase 87 U/L (38-126); Aspartate Aminotransferase 33 IU/L (14-36); BUN Creatinine Ratio 17.2 (6-22); Bilirubin Total 0.6 mg/dL (0.2-1.3); Blood Urea Nitrogen 11 mg/dL (7-17); Calcium 9.6 mg/dL (8.4-10.2); Carbon Dioxide 27 mmol/L (22-32); Chloride 100 mmol/L (98-107); Estimated Glomerular Filt Rate > 60.0 mL/min (>60); Globulin 3.1 g/dL (1.7-4.1); Glucose 100 mg/dL (70-100); HEMOLYSIS < 15 (0-50); Potassium 4.1 mmol/L (3.4-5.1); Sodium 135 mmol/L (137-145); Total Protein 7.3 g/dL (6.3-8.2)
[2019-07-18 11:19] LABS: Carcinoembryonic Antigen 2.1 ng/mL (0.1-3.0)
== END ==
PROVIDERS: PCP Nurse Practitioner Family; Referring Provider Internal Medicine Hematology & Oncology; Visit Provider Internal Medicine Hematology & Oncology
DX: C20 Malignant neoplasm of rectum (principal)
CPT/HCPCS: 36415; 80053; 82378; 85025

== ENCOUNTER 2022-11-20 10:32 | Emergency (ER) | payer MEDICARE, OTHER, SELFPAY ==
[2022-11-20] VITALS (13 sets, daily range): BP systolic 94–117; BP diastolic 59–73; PULSE 64–117; RESP 17–37; TEMP 36.2; O2SAT 96–100; BMI 21.2
--- NOTE | 2022-11-20 10:46 | DI.RAD.S_ITS ---
PROCEDURE: XR CHEST 1V INDICATIONS: chest pain TECHNIQUE: One view of the chest was acquired. COMPARISON: [facility], , CHEST FOR PICC PLACEMENT, 07/20/2014, 11:14. FINDINGS: Surgical changes and devices: None. Lungs and pleura: Lungs are clear. No pleural effusions or pneumothorax. Mediastinum: Mediastinal contours appear normal. Heart size is normal. Bones and chest wall: No suspicious bony lesions. Overlying soft tissues appear unremarkable. IMPRESSION: No acute cardiopulmonary process. Dictated by: Felix Hernandez M.D. on 11/20/2022 at 11:31 Approved by: Felix Hernandez M.D. on 11/20/2022 at 11:31
[2022-11-20 11:30] LABS: Add Manual Diff / Slide Review NO; Basophils Absolute Auto 0 /uL (0-100); Basophils Percent Auto 0.3 % (0-2); Eosinophils Absolute Auto 0 /uL (0-450); Hematocrit 43.3 % (36-46); Lymphocytes Absolute Auto 500 /uL (1100-4500); Lymphocytes Percent Auto 6.9 % (25-40); Mean Corpuscular HGB Conc 34.5 % (30-36); Mean Corpuscular Hemoglobin 29.4 PG (26-34); Monocytes Absolute Auto 200 /uL (0-900); Monocytes Percent Auto 2.3 % (3-14); Neutrophils Absolute Auto 6200 /uL (1500-7000); Neutrophils Percent Auto 90.5 % (50-75); Platelet Count 229 X10^3/uL (150-400); Red Blood Cell Count 5.09 X10^6/uL (4.0-5.2); Red Cell Distribution Width 13.1 % (11.6-14.8); White Blood Cell Count 6.9 X10^3/uL (4.5-11.0)
[2022-11-20 11:35] LABS: Prothrombin Time 11.7 SECONDS (10.1-12.7)
[2022-11-20 11:38] LABS: PTT Partial Thromboplastin Tim 34 SECONDS (26-36)
[2022-11-20 11:44] LABS: Alanine Aminotransferase 14 IU/L (<35); Albumin 4.7 g/dL (3.5-5.0); Albumin Globulin Ratio 1.5 (1.0-2.8); Alkaline Phosphatase 106 U/L (38-126); Aspartate Aminotransferase 26 IU/L (14-36); BUN Creatinine Ratio 17.2 (6-22); Bilirubin Total 0.8 mg/dL (0.2-1.3); Blood Urea Nitrogen 11 mg/dL (7-17); Calcium 9.6 mg/dL (8.4-10.2); Carbon Dioxide 26 mmol/L (22-32); Chloride 99 mmol/L (98-107); Creatine Kinase 88 U/L (30-135); Estimated Glomerular Filt Rate > 60 mL/min (>60); Globulin 3.1 g/dL (1.7-4.1); Glucose 118 mg/dL (70-100); HEMOLYSIS < 15 (0-50); Lipase 115 U/L (23-300); Potassium 3.7 mmol/L (3.4-5.1); Sodium 135 mmol/L (137-145); Total Protein 7.8 g/dL (6.3-8.2)
[2022-11-20 11:54] LABS: Troponin I < 0.012 ng/mL (0.01-0.034)
[2022-11-20 12:27] LABS: TSH w/ Reflex to FT4 4.18 uIU/mL (0.47-4.68)
--- NOTE | 2022-11-20 12:56 | DI.US.S_ITS ---
PROCEDURE: US ABDOMEN LIMITED INDICATIONS: RUQ PAIN TECHNIQUE: Real-time scanning was performed of the abdominal and retroperitoneal organs, with image documentation. COMPARISON: None. FINDINGS: Liver: Liver is normal in size and homogeneous in echotexture. Gallbladder: Unremarkable. Biliary ducts: Intrahepatic bile ducts are non-dilated. Extrahepatic bile duct caliber measures 5 mm. Normal is 6-7 mm or less in diameter, or 10 mm or less post-cholecystectomy. Pancreas: Visualized portions of the pancreas are sonographically normal. Miscellaneous: No free abdominal fluid. IMPRESSION: Unremarkable gallbladder. No findings to explain the patient's right upper quadrant pain. Dictated by: Felix Hernandez M.D. on 11/20/2022 at 14:00 Approved by: Felix Hernandez M.D. on 11/20/2022 at 14:01
--- NOTE | 2022-11-20 12:57 | ED_ITS ---
HPI - Abdominal Pain General Chief Complaint: Shortness of Breath/Dyspnea Stated Complaint: SOB, dizzy, lightheaded, burning in chest Time Seen by Provider: 11/20/22 12:19 Source: patient Mode of arrival: Wheelchair Limitations: no limitations History of Present Illness HPI narrative: This is a 57-year-old female with history of rectal cancer with colon resection 3 years ago, ileostomy which was reversed within 3 weeks and hysterectomy. Patient has a history of hypothyroidism. Patient presents today she states starting this Wednesday she started having a lot of just abdominal discomfort she states it is painful in her abdomen she describes all over but a little bit on the right towards her back, also in general. She is also had some chest discomfort. She states it is not pruritic or painful to take a deep breath but she feels like she can not catch her breath. She still little lightheaded but no passing out. She is had some nausea she is spit up some saliva but no emesis. She states she initially was constipated she stopped her pregabalin and then started having more diarrhea like stools. No melena, she has had amounts of bloody pink and mucousy parts or very small amounts of stool intermittently. Patient states she has not had similar symptoms in the past. She denies dysuria urgency or frequency she denies any active flank pain. No swelling in her extremities. Patient does note that she had a CT sounds like chest abdomen pelvis as an outpatient on last a week ago that showed 3 little spots in her left lung was not informed of any other changes. She states she is still on Protonix as needed, Synthroid and had recently stopped the pregabalin. She is taken a dose of Protonix, she is tried Maalox and Tums. She is not tried any Tylenol or other pain medications. Denies tobacco, alcohol or illicit. States she is allergic to aspirin and NSAIDs she gets blood blisters, dairy and iodine. Her primary care is Dr. Everett at the [facility]. She follows with Oncology at [facility]. Related Data Home Medications Medication Instructions Recorded Confirmed cholecalciferol (vitamin D3) 125 5,000 unit PO DAILY 08/31/18 01/03/19 mcg (5,000 unit) tablet (Vitamin D3) ferrous sulfate 325 mg (65 mg 325 mg PO DAILY 08/31/18 01/03/19 iron) tablet (iron) fluticasone propionate 50 1 spray intranasal DAILY 09/21/18 01/03/19 mcg/actuation nasal spray,suspension sumatriptan succinate 100 mg 100 mg PO Q2-4H PRN migraines 09/21/18 01/03/19 tablet (Imitrex) pantoprazole 40 mg tablet,delayed 40 mg PO DAILY 12/20/18 01/03/19 release (Protonix) Previous Rx's Medication Instructions Recorded hydrocodone 5 mg-acetaminophen 325 1 tab PO Q6H PRN pain #7 tabs 11/20/22 mg tablet Allergies Allergy/AdvReac Type Severity Reaction Status Date / Time aspirin [ASPIRIN] Allergy Intermediate BLOOD Verified 11/20/22 10:45 BLISTERS NSAIDS (Non-Steroidal Allergy Intermediate BLOOD Verified 11/20/22 10:45 Anti-Inflamma BLISTERS [NSAIDS (NON-STEROIDAL ANTI-INFLAMMA] iodine Allergy Mild throat Verified 11/20/22 10:45 swelling lactose [LACTOSE] Allergy Mild DIARRHEA, Verified 11/20/22 10:45 STOMACH CRAMPING. turkey Allergy Intermediate Causes Uncoded 01/03/19 15:46 migraines Review of Systems Review of Systems ROS Unobtainable: All systems reviewed & are unremarkable except as noted in HPI and below Patient History Medical History (Updated 11/20/22 @ 15:13 by Tiffanie Couch DO) Anemia Dizziness Low vitamin D level Migraines Ovarian cyst Palpitations Rectal cancer Thyroid tumor, benign Surgical History History of hysterectomy Family History Father Hypertension Mother Cancer Grandmother Cancer Grandfather Diabetes mellitus Social History household members: spouse Smoking Status: Former smoker Smoking Status: Former smoker tobacco type: cigarettes alcohol intake frequency: 0-2 drinks per day Substance Use Type: does not use Exam Narrative Exam Narrative: GENERAL: Alert and oriented x three, thin female in [id number] distress. HEENT: Head normocephalic, atraumatic, EOMI, pupils reactive, face symmetric, moist mucous membranes NECK: Supple, full range of motion CARDIOVASCULAR: Regular rate and rhythm without murmurs, rubs or gallops. No reproducible chest pain. No JVD. No swelling bilateral lower extremities. RESPIRATORY: Breath sounds equal bilaterally, no wheezes rales or rhonchi. ABDOMEN: Soft, generalized tenderness but significantly greater than right upper quadrant. Normoactive bowel sounds all 4 quadrants. No guarding or rebound, rigidity, no mass, no bruit or pulsatile mass. Nondistended. : No CVA tenderness EXTREMITIES: Normal range of motion, no clubbing or edema. Neurovascularly intact NEUROLOGICAL: Cranial nerves II through XII grossly intact. Moving all extremities SKIN: Warm, dry, no petechiae, no rashes or lesions. Initial Vital Signs Initial Vital Signs: Vital Signs Temperature 97.1 F L 11/20/22 10:42 Pulse Rate 78 11/20/22 10:42 Respiratory Rate 18 11/20/22 10:42 Blood Pressure 103/70 11/20/22 10:42 Pulse Oximetry 100 11/20/22 10:42 Oxygen Delivery Method Room Air 11/20/22 10:42 Course Orders Ordered: ED Orders 11/20/22 10:46 XR chest 1V Stat 11/20/22 11:00 Urine Microscopic Stat 11/20/22 11:02 EKG-12 Lead Stat 11/20/22 11:18 Complete Blood Count AUTO DIFF Stat Comprehensive Metabolic Panel Stat D Dimer Stat Lipase Stat Magnesium Stat PTT Partial Thromboplastin Anselmo Stat Prothrombin Time INR Stat TSH w/ Reflex to FT4 Stat Troponin & CK Cardiac Panel Stat 11/20/22 12:56 US abdomen limited Stat 11/20/22 13:28 CT abdomen pelvis w con Stat Discontinued Medications Morphine Sulfate (Morphine 4 Mg/Ml Inj) 4 mg IV NOW ONE Stop: 11/20/22 12:57 Last Admin: 11/20/22 13:21 Dose: 4 mg Documented By: NR Ondansetron HCl (Ondansetron 4 Mg/2 Ml Inj) 4 mg IV NOW ONE Stop: 11/20/22 12:57 Last Admin: 11/20/22 13:21 Dose: 4 mg Documented By: NR Vital Signs Vital signs: Vital Signs - 8 hr 11/20/22 11:19 11/20/22 11:20 11/20/22 11:20 Pulse Rate 68 78 Respiratory Rate Blood Pressure 117/63 Pulse Oximetry 100 100 Oxygen Delivery Method 11/20/22 11:30 11/20/22 11:30 11/20/22 12:00 Pulse Rate 71 Respiratory Rate Blood Pressure 111/62 94/62 Pulse Oximetry 100 Oxygen Delivery Method 11/20/22 12:00 11/20/22 12:30 11/20/22 12:30 Pulse Rate 65 78 Respiratory Rate 17 Blood Pressure 96/59 L Pulse Oximetry 99 100 Oxygen Delivery Method 11/20/22 13:00 11/20/22 13:00 11/20/22 13:30 Pulse Rate 67 Respiratory Rate 18 Blood Pressure 106/62 116/73 Pulse Oximetry 100 Oxygen Delivery Method 11/20/22 13:30 11/20/22 14:00 11/20/22 14:00 Pulse Rate 117 H 68 Respiratory Rate 19 19 Blood Pressure 99/60 Pulse Oximetry 100 100 Oxygen Delivery Method 11/20/22 14:30 11/20/22 15:00 11/20/22 15:15 Pulse Rate 67 64 68 Respiratory Rate 25 H 24 25 H Blood Pressure Pulse Oximetry 100 100 96 Oxygen Delivery Method Room Air 11/20/22 15:15 11/20/22 15:30 11/20/22 15:30 Pulse Rate 65 Respiratory Rate 37 H Blood Pressure 108/61 114/67 Pulse Oximetry 100 Oxygen Delivery Method MDM - Abdominal Pain Lab Data 11/20/22 11:18 11/20/22 11:18 Labs: Lab Results 11/20/22 11/20/22 11/20/22 Range/Units 11:00 11:18 11:18 WBC 6.9 (4.5-11.0) X10^3/uL RBC 5.09 (4.0-5.2) X10^6/uL Hgb 15.0 (12.0-16.0) g/dL Hct 43.3 (36-46) % MCV 85.0 (80-100) fL MCH 29.4 (26-34) PG MCHC 34.5 (30-36) % RDW 13.1 (11.6-14.8) % Plt Count 229 (150-400) X10^3/uL Neut % (Auto) 90.5 H (50-75) % Lymph % (Auto) 6.9 L (25-40) % Crawford % (Auto) 2.3 L (3-14) % Eos % (Auto) 0.0 L (2-4) % Baso % (Auto) 0.3 (0-2) % Neut # (Auto) 6200 (3723-5471) /uL Lymph # (Auto) 500 L (8000-6116) /uL Crawford # (Auto) 200 (0-900) /uL Eos # (Auto) 0 (0-450) /uL Baso # (Auto) 0 (0-100) /uL PT 11.7 (10.1-12.7) SECONDS INR 1.0 (0.9-1.3) APTT 34 (26-36) SECONDS D-Dimer (<500) ng/ml Sodium (137-145) mmol/L Potassium (3.4-5.1) mmol/L Chloride (98-107) mmol/L Carbon Dioxide (22-32) mmol/L BUN (7-17) mg/dL Creatinine (0.52-1.04) mg/dL Estimated GFR (>60) mL/min BUN/Creatinine Ratio (6-22) Glucose (70-100) mg/dL Calcium (8.4-10.2) mg/dL Magnesium (1.6-2.3) mg/dL Total Bilirubin (0.2-1.3) mg/dL AST (14-36) IU/L ALT (<35) IU/L Alkaline Phosphatase (38-126) U/L Total Creatine Kinase (30-135) U/L Troponin I (0.01-0.034) ng/mL Total Protein (6.3-8.2) g/dL Albumin (3.5-5.0) g/dL Globulin (1.7-4.1) g/dL Albumin/Globulin Ratio (1.0-2.8) Lipase (23-300) U/L TSH (0.47-4.68) uIU/mL Urine RBC None seen (0-5/HPF) Urine WBC None seen (0-5/HPF) Ur Squamous Epith Cells None seen (0-5/HPF) Urine Bacteria None seen (None) Ur Culture Indicated? Cult not indicated 11/20/22 11/20/22 11/20/22 Range/Units 11:18 11:18 11:18 WBC (4.5-11.0) X10^3/uL RBC (4.0-5.2) X10^6/uL Hgb (12.0-16.0) g/dL Hct (36-46) % MCV (80-100) fL MCH (26-34) PG MCHC (30-36) % RDW (11.6-14.8) % Plt Count (150-400) X10^3/uL Neut % (Auto) (50-75) % Lymph % (Auto) (25-40) % Crawford % (Auto) (3-14) % Eos % (Auto) (2-4) % Baso % (Auto) (0-2) % Neut # (Auto) (3911-9288) /uL Lymph # (Auto) (0195-0814) /uL Crawford # (Auto) (0-900) /uL Eos # (Auto) (0-450) /uL Baso # (Auto) (0-100) /uL PT (10.1-12.7) SECONDS INR (0.9-1.3) APTT (26-36) SECONDS D-Dimer 478 (<500) ng/ml Sodium 135 L (137-145) mmol/L Potassium 3.7 (3.4-5.1) mmol/L Chloride 99 (98-107) mmol/L Carbon Dioxide 26 (22-32) mmol/L BUN 11 (7-17) mg/dL Creatinine 0.64 (0.52-1.04) mg/dL Estimated GFR > 60 (>60) mL/min BUN/Creatinine Ratio 17.2 (6-22) Glucose 118 H (70-100) mg/dL Calcium 9.6 (8.4-10.2) mg/dL Magnesium 2.0 (1.6-2.3) mg/dL Total Bilirubin 0.8 (0.2-1.3) mg/dL AST 26 (14-36) IU/L ALT 14 (<35) IU/L Alkaline Phosphatase 106 (38-126) U/L Total Creatine Kinase 88 (30-135) U/L Troponin I < 0.012 (0.01-0.034) ng/mL Total Protein 7.8 (6.3-8.2) g/dL Albumin 4.7 (3.5-5.0) g/dL Globulin 3.1 (1.7-4.1) g/dL Albumin/Globulin Ratio 1.5 (1.0-2.8) Lipase 115 (23-300) U/L TSH 4.18 (0.47-4.68) uIU/mL Urine RBC (0-5/HPF) Urine WBC (0-5/HPF) Ur Squamous Epith Cells (0-5/HPF) Urine Bacteria (None) Ur Culture Indicated? Point of care testing: Urine Dip Bedside Urine Glucose Negative Bedside Urine Bilirubin - Negative Bedside Urine Ketone + 15 Urine Specific [place] 1.005 Bedside Urine Occult Blood - Negative Bedside Urine pH 7.5 Bedside Urine Protein - Negative Bedside Urine Urobilinogen - Negative Bedside Urine Nitrite - Negative Bedside Urine Leukocytes - Negative Esterase Imaging Data US - abdomen: Radiologist's Impression: Close Abdomen/Pelvis CT (Signed) Stiven Salazar - 11/20/22 Abdomen Ultrasound (Signed) Felix Hernandez - 11/20/22 Chest X-Ray (Signed) Felix Hernandez - 11/20/22 Chest/Abdomen/Pelvis CT (Signed) Korey Willingham - 12/21/18 Telemetry Strips 12/20/18 Telemetry Strips 09/23/18 Chest/Abdomen/Pelvis CT (Signed) Juan Denton - 09/16/18 Pelvis MRI (Signed) Seema Reyes - 09/16/18 Telemetry Strips 08/31/18 Launch?[place] [address] Ultrasound Report Signed Patient: Sushila Smalls MR#: [id number] : 1965 Acct:[id number] Age/Sex: 57 / F Date of Service: 11/20/22 Loc: ED Accession Number: [id number] ?? Procedure: US abdomen limited Ordering Provider: Tiffanie Couch D.O. PROCEDURE:? US ABDOMEN LIMITED ? INDICATIONS:? RUQ PAIN ? TECHNIQUE:? Real-time scanning was performed of the abdominal and retroperitoneal organs, with image documentation.? ? COMPARISON:? None. ? FINDINGS:? ? Liver:? Liver is normal in size and homogeneous in echotexture.? ? Gallbladder:? Unremarkable.? ? Biliary ducts:? Intrahepatic bile ducts are non-dilated.? Extrahepatic bile duct caliber measures 5 mm.? Normal is 6-7 mm or less in diameter, or 10 mm or less post-cholecystectomy.? ? Pancreas:? Visualized portions of the pancreas are sonographically normal.? ? ? Miscellaneous:? No free abdominal fluid.? ? ? IMPRESSION:? Unremarkable gallbladder.? No findings to explain the patient's right upper quadrant pain. ? Dictated by: Felix Hernandez M.D. on 11/20/2022 at 14:00 ? ? Approved by: Felix Hernandez M.D. on 11/20/2022 at 14:01?? CT scan - abdomen/pelvis: Radiologist's Impression: Close Abdomen/Pelvis CT (Signed) Stiven Salazar - 11/20/22 Abdomen Ultrasound (Signed) Felix Hernandez - 11/20/22 Chest X-Ray (Signed) Felix Hernandez - 11/20/22 Chest/Abdomen/Pelvis CT (Signed) Korey Willingham - 12/21/18 Telemetry Strips 12/20/18 Telemetry Strips 09/23/18 Chest/Abdomen/Pelvis CT (Signed) Juan Denton - 09/16/18 Pelvis MRI (Signed) Seema Reyes - 09/16/18 Telemetry Strips 08/31/18 Launch?[place] [address] Ultrasound Report Signed Patient: Sushila Smalls MR#: [id number] : 1965 Acct:[id number] Age/Sex: 57 / F Date of Service: 11/20/22 Loc: ED Accession Number: [id number] ?? Procedure: US abdomen limited Ordering Provider: Tiffanie Couch D.O. PROCEDURE:? US ABDOMEN LIMITED ? INDICATIONS:? RUQ PAIN ? TECHNIQUE:? Real-time scanning was performed of the abdominal and retroperitoneal organs, with image documentation.? ? COMPARISON:? None. ? FINDINGS:? ? Liver:? Liver is normal in size and homogeneous in echotexture.? ? Gallbladder:? Unremarkable.? ? Biliary ducts:? Intrahepatic bile ducts are non-dilated.? Extrahepatic bile duct caliber measures 5 mm.? Normal is 6-7 mm or less in diameter, or 10 mm or less post-cholecystectomy.? ? Pancreas:? Visualized portions of the pancreas are sonographically normal.? ? ? Miscellaneous:? No free abdominal fluid.? ? ? IMPRESSION:? Unremarkable gallbladder.? No findings to explain the patient's right upper quadrant pain. ? Dictated by: Felix Hernandez M.D. on 11/20/2022 at 14:00 ? ? Approved by: Felix Hernandez M.D. on 11/20/2022 at 14:01?? ECG Data Attestation: I personally reviewed and interpreted this ECG as follows: Prior ECG tracings: not available for review Interpretation: Normal sinus rhythm rate of 80, NC 126 QRS is 78 QTC [address]. No acute ST elevation depression noted. No priors for comparison. MDM Narrative Medical decision making narrative: This is a 57-year-old female with history significant for rectal cancer with resection she had a short term ileostomy which was reversed with an several weeks this was 3 years ago. Patient has had new onset of abdominal pain as well as chest pain running Wednesday and been getting worse since then. Patient states hard to catch her breath but no pleuritic pain. She does report 3 little spots on her left lung so may have a recurrence. She states no changes were noted on her abdomen on CT imaging a week ago last . Patient is quite tender in her right upper quadrant she does still have her gallbladder, labs including CBC, CMP, lipase and troponin no show acute change, chest x-ray is negative, no other infectious symptoms appreciated but she is felt hot and cold intermittently with nausea. EKG shows no acute change. Patient had D-dimer which was negative. Urine is negative. Abdominal ultrasound to evaluate for gallbladder disease is negative. Because of patient's history for colon resection she did have some bloody stool suspect more of a colitis type picture or other issues so CT abdomen pelvis was ordered shows rectosigmoid in his stomach staple line without focal abnormality, no other acute changes appreciated. Unremarkable gallbladder. Discussed findings with patient she does have epigastric pain asked her to restart her Protonix but she is also having or abdominal discomfort. Does seem to be more localized her abdomen. She did describe some mucousy little bit of bloody stool. She has follow-up colonoscopy in February asked for her to follow up sooner to be rescoped. We will do a short course of pain medication, plan for follow-up I reviewed all of her findings today. Patient had some water here in the department she was feeling much better after pain medication. We did di scuss return precautions with her and her . Discharge Plan Departure Patient Disposition: Home Clinical Impression: Abdominal pain Instructions: DI for Abdominal Pain-Adult Activity Restrictions/Additional Instructions: Follow-up with your physician for recheck. You are workup does not show any other acute changes currently but I would recommend EGD or colonoscopy if symptoms are persisting. Please talk with your physician about moving your upcoming colonoscopy to a sooner date rather than February. You can take Tylenol up to a 1000 mg every 6 hours if in adequate you can take Powell instead of Tylenol 1-2 tablets every 6 hours. This medication can make you sleepy do not drive, perform hazardous activities or make any major decisions while taking it. This medication will make you constipated please take a stool softener once to twice daily until stools are soft and regular. Prescription sent to [facility] in [place]. Please return for new or worsening pain, passing out, increasing chest pain or shortness breath, abdominal back flank pain, persistent vomiting, new swelling of her extremities, black or bloody stools or other new or concerning changes. Prescriptions: New hydrocodone-acetaminophen 5-325 mg tablet 1 tab PO Q6H PRN (Reason: pain) Qty: 7 0RF No Action sumatriptan succinate [Imitrex] 100 mg tablet 100 mg PO Q2-4H PRN (Reason: migraines) fluticasone propionate 50 mcg/actuation spray,suspension 1 spray NASAL DAILY ferrous sulfate [iron] 325 mg (65 mg iron) Tablet 325 mg PO DAILY cholecalciferol (vitamin D3) [Vitamin D3] 5,000 unit Tablet 5,000 unit PO DAILY pantoprazole [Protonix] 40 mg Tablet,Delayed Release (Dr/Ec) 40 mg PO DAILY Referrals: Luis Antonio Brink ARNP [Primary Care Provider] - Stand Alone Forms: Patient Portal/API
[2022-11-20 13:05] LABS: D Dimer 478 ng/ml (<500)
[2022-11-20] MEDS: MORPHINE 4 MG/ML INJ IV (13:21)
[2022-11-20] MEDS: ONDANSETRON 4 MG/2 ML INJ IV (13:21)
--- NOTE | 2022-11-20 13:28 | DI.CT.S_ITS ---
PROCEDURE: CT ABDOMEN PELVIS W CON INDICATIONS: abd pain, hx colon ca 3 years ago TECHNIQUE: After the administration of oral and IV contrast, axial sections were acquired from the lung bases to the pubic symphysis. Coronal and sagittal reformats were performed. For radiation dose reduction, the following was used: automated exposure control, adjustment of mA and/or kV according to patient size. COMPARISON: [facility], CT, CT CHEST ABD PEL W CON, 12/21/2018, 10:52. [facility], CT, ABDOMEN/PELVIS WITH CONTRAST, 02/18/2015, 10:55. [facility], US, US ABDOMEN LIMITED, 11/20/2022, 13:41. FINDINGS: Image quality: Excellent. Lung bases: Unremarkable. Heart: No significant findings. ABDOMEN: Liver: Incidental note is made of focal fatty infiltration adjacent to the falciform ligament, which is not regarded to be pathologic. The liver is normal in size and demonstrates no suspicious lesions. Gallbladder: Unremarkable. Biliary ducts: Unremarkable. Pancreas: Unremarkable. Spleen: Unremarkable. Adrenal Glands: Unremarkable. Kidneys and Ureters: Unremarkable. Stomach and Bowel: There is a rectosigmoid anastomotic staple line. No hernandez abnormality can be seen at this site. The remainder of the colon demonstrates no significant abnormality. Status post appendectomy new line no dilated loops of small bowel are seen. Stomach is relatively decompressed, which limits its evaluation. Peritoneum: No abnormal intraperitoneal fluid. No free air. Ventral Wall: No hernia. Abdominal Nodes: No retroperitoneal or mesenteric adenopathy by size criteria. Vessels: Aorta and inferior vena cava are normal in size. PELVIS: Pelvic Organs: This patient is status post hysterectomy. No adnexal masses are seen. Bladder: Unremarkable. Pelvic Nodes: No enlarged lymph nodes. Miscellaneous: No inguinal hernias are seen. Bones: Mild levoconvex scoliotic curvature is noted. Focal L2-L3 degenerative change is seen. Milder degenerative changes are seen elsewhere. IMPRESSION: No significant, acute abnormality is seen. Rectosigmoid anastomotic staple line, without local focal abnormality seen. The previously seen mass has been resected. Additional findings: Focal L2-L3 degenerative change Levoconvex scoliotic curvature Appendectomy Hysterectomy Dictated by: Stiven Salazar M.D. on 11/20/2022 at 13:53 Approved by: Stiven Salazar M.D. on 11/20/2022 at 13:56
--- NOTE | 2022-11-20 13:33 | PC.NURSE ---
education given to patient prior to med administration about morphine and side effects. Pt asked me to stop adminstration of morphine 2/3 way through admin. pt states she is feeling hot and sweaty and nauseous. unable to change dose in JUL. charge nurse informed. morphine 1ml added to 2ml of saline for total of 3ml. 2ml pushed for a total of 2.66mg given over a total of 3min. 1.33mg(1ml) wasted in log book with charge nurse.
[2022-11-20 13:54] LABS: Bacteria Urine None Seen; Culture Indicated Urine Cult Not Indicated; RBC Urine None Seen (0-5/HPF); Squamous Epithelial Cell Urine None Seen (0-5/HPF); WBC Urine None Seen (0-5/HPF)
--- NOTE | 2022-11-20 14:58 | CM.MNRNOTE ---
when asked why pt is here today pt states she is not feeling good. spoke about her history of cancer and that her blood counts are off and that she has been feeling sick the last few days. when asked to describe sick feeling pt c/o intermittent SOB, chest pain that is heartburn like but also crampy stomach pain with her heartburn. lots of belching, intermittent nausea/vomiting, headache. pt denies diarrhea or constipation
--- NOTE | 2022-11-23 15:54 | PC.NURSE ---
ED provider report faxed to [facility] as pt is there for another visit.
== END 2022-11-20 15:53 | disposition home or self-care (01) ==
PROVIDERS: Emergency Provider Emergency Medicine; PCP Nurse Practitioner Family
DX: R10.11 Right upper quadrant pain (principal)
CPT/HCPCS: 36415; 71045; 74177; 76705; 80053; 81003; 81015; 82550; 83690; 83735; 84443; 84484; 85025; 85379; 85610; 85730; 93005; 96374; 96375; 99284; 99285; J2270; J2405; Q9967

== ENCOUNTER → 2024-04-27 10:12 | Outpatient (CLI) | payer MEDICARE, OTHER, SELFPAY ==
--- NOTE | 2024-04-27 10:13 | DI.RAD.S_ITS ---
PROCEDURE: XR DEXA AXIAL SKELETON INDICATIONS: Malignant neoplasm of colon, unspecified COMPARISON: None. FINDINGS: Lumbar Spine: L2-L4. Bone mineral density 0.991 g/cm2, T score -0.8. Left Hip: Bone mineral density 0.794 g/cm2, T score -1.2. Left Femoral Neck: Bone mineral density 0.641 g/cm2, T score -1.9. Right Hip: Bone mineral density 0.818 g/cm2, T score -1.0. Right Femoral Neck: Bone mineral density 0.646 g/cm2, T score -1.8. Fracture Risk Calculation (when applicable): 10-year fracture risk of a major osteoporotic fracture 7.5 percent and of a hip fracture 0.9 percent. (T score greater or equal to -1.0 to: NORMAL) (T score from -1.1 to -2.4: OSTEOPENIA) (T score less than or equal to -2.5: OSTEOPOROSIS) IMPRESSION: Osteopenia. Follow-up guidelines as follows: Osteoporosis: Consider a repeat DEXA and Vertebral Fracture Assessment (VFA) exam in 2 years or sooner if medically necessary, to reassess this patient's status. Osteopenia: Consider a repeat DEXA in 2-3 years to reassess this patient's status, or if there is a new clinical indication. Normal: Consider a repeat DEXA in 5 years or sooner, or if there is a new clinical indication. All treatment decisions require clinical judgment and consideration of individual patient factors, including patient preferences, comorbidities, previous drug use, risk factors not captured in the FRAX model (e.g., frailty, falls, vitamin D deficiency, increased bone turnover, interval significant decline in bone density ) and possible under- or over-estimation of fracture risk by FRAX. In addition, the NOF Guide recommends that FDA-approved medical therapies be considered in postmenopausal women and men age >= 50 years with a: * Hip or vertebral (clinical or morphometric) fracture * T-score of <=-2.5 at the spine or hip * Ten-year fracture probability by FRAX of >= 3% for hip fracture or >=20% for major osteoporotic fracture. People with diagnosed cases of osteoporosis or at high risk for fracture should have regular bone mineral density tests. For patients eligible for Medicare, routine testing is allowed once every 2 years. The testing frequency can be increased to one year for patients who have rapidly progressing disease, those who are receiving or discontinuing medical therapy to restore bone mass, or have additional risk factors. Dictated by: Nash Wise M.D. on 04/27/2024 at 21:21 Approved by: Nash Wise M.D. on 04/27/2024 at 21:24
== END ==
DX: M85.89 Other specified disorders of bone density and structure, multiple sites (principal); C18.9 Malignant neoplasm of colon, unspecified; Z79.818 Long term (current) use of other agents affecting estrogen receptors and estrogen levels
CPT/HCPCS: 77080